=== PATIENT | male | born 1995 | race American Indian/Alaskan Native ===

== ENCOUNTER 2019-01-28 01:34 | Emergency (ER) | payer OTHER ==
[2019-01-28] MEDS ORDERED: NACL 0.9% 1000 ML 1,000 ML IV ONE (01:41)
[2019-01-28 02:35] LABS: Hematocrit 37.8 % (35.5-45.6); Hemoglobin 12.1 gm/dl (11.8-15.2); Mean Corpuscular HGB Conc 32 % (32-34); Mean Corpuscular Volume 78 fl (84-94); Red Blood Count 4.89 M/mm3 (3.65-5.03); Red Cell Distribution Width 14.8 % (13.2-15.2)
[2019-01-28 02:36] LABS: Basophils % (Auto) 0.1 % (0.0-1.8); Lymphocytes % (Auto) 23.4 % (13.4-35.0); Platelet Count 271 K/mm3 (140-440)
[2019-01-28 02:37] LABS: Eosinophils # (Auto) 0.7 K/mm3 (0.0-0.4); Lymphocytes # (Auto) 4.2 K/mm3 (1.2-5.4); Monocytes # (Auto) 1.3 K/mm3 (0.0-0.8)
[2019-01-28 02:47] LABS: Alanine Aminotransferase 19 units/L (7-56); Albumin 4.1 g/dL (3.9-5); BUN/Creatinine Ratio 12; Blood Urea Nitrogen 11 mg/dL (9-20); Hemolysis Index 9
[2019-01-28] MEDS ORDERED: ZOFRAN IV ONE (05:26)
[2019-01-28] MEDS ORDERED: K-DUR PO ONE (05:26)
[2019-01-28] MEDS ORDERED: MORPHINE IV ONE (05:26)
--- NOTE | 2019-01-28 05:27 | Event Note ---
Date: 01/28/19 23-year-old gentleman presents to the emergency room with a complaint of nontraumatic abdominal pain, bilateral lower quadrants, suprapubic and francisco bxiphoid, epigastric. He also endorses nonspecific shortness of breath. Reported no pulmonary embolus or DVT risk factors. Screening laboratory studies, EKG, x-ray of the chest ordered. Pain medication, nausea medication, IV fluids ordered. Vital Signs 01/28/19 01:40 Temperature 98.6 F Pulse Rate 89 Respiratory 20 Rate Blood Pressure 137/69 O2 Sat by Pulse 98 Oximetry Lab Results 01/28/19 01/28/19 Range/Units 01:56 01:56 WBC 18.0 H (4.5-11.0) K/mm3 RBC 4.89 (3.65-5.03) M/mm3 Hgb 12.1 (11.8-15.2) gm/dl Hct 37.8 (35.5-45.6) % MCV 78 L (84-94) fl MCH 25 L (28-32) pg MCHC 32 (32-34) % RDW 14.8 (13.2-15.2) % Plt Count 271 (140-440) K/mm3 Lymph % (Auto) 23.4 (13.4-35.0) % [place] % (Auto) 7.0 (0.0-7.3) % Eos % (Auto) 4.0 (0.0-4.3) % Baso % (Auto) 0.1 (0.0-1.8) % Lymph # 4.2 (1.2-5.4) K/mm3 [place] # 1.3 H (0.0-0.8) K/mm3 Eos # 0.7 H (0.0-0.4) K/mm3 Baso # 0.0 (0.0-0.1) K/mm3 Seg Neutrophils % 65.5 (40.0-70.0) % Seg Neutrophils # 11.8 H (1.8-7.7) K/mm3 Sodium 139 (137-145) mmol/L Potassium 3.3 L (3.6-5.0) mmol/L Chloride 101.0 (98-107) mmol/L Carbon Dioxide 25 (22-30) mmol/L Anion Gap 16 mmol/L BUN 11 (9-20) mg/dL Creatinine 0.9 (0.8-1.5) mg/dL Estimated GFR > 60 ml/min BUN/Creatinine Ratio 12 % Glucose 148 H (75-100) mg/dL Calcium 9.0 (8.4-10.2) mg/dL Total Bilirubin 0.20 (0.1-1.2) mg/dL AST 31 (5-40) units/L ALT 19 (7-56) units/L Alkaline Phosphatase 74 (35-129) units/L Total Protein 7.1 (6.3-8.2) g/dL Albumin 4.1 (3.9-5) g/dL Albumin/Globulin Ratio 1.4 % Lipase 29 (13-60) units/L
--- NOTE | 2019-01-28 05:48 | XRay Report ---
PROCEDURE: XR CHEST 1V AP TECHNIQUE: A portable upright view of the chest was obtained. HISTORY: dyspnea COMPARISONS: None FINDINGS: The heart size and mediastinum appear normal. The lungs are clear. Pleural fluid is not seen. The bon es and soft tissues appear well-maintained. IMPRESSION: No acute cardiopulmonary process.. This document is electronically signed by Armond Ramos MD., January 28 2019 05:46:39 AM ET
[2019-01-28 05:52] LABS: INR 1.08 (0.87-1.13)
--- NOTE | 2019-01-28 07:23 | Emergency Department Report ---
HPI - General Chief Complaint: Abdominal Pain Time Seen by Provider: 01/28/19 07:09 - HPI HPI: Room 26 The patient is a 23-year-old male presenting with a chief complaint of abdominal pain. Patient states his pain began this evening at approximately midnight he developed stabbing midepigastric abdominal pain that migrates across the top of his abdomen. Patient states the pain is intermittent and associated with nausea and vomiting. Patient denies diarrhea or fever but states he broke out into a sweat while vomiting. The patient is to call is occasionally productive for 1 week. Patient was medicated prior to my arrival and now states he is feeling improved Location: [See above] Duration: [See above] Quality: [See above] Severity: [See above] Modifying factors: [see above] Context: [see above] Mode of transportation: [not driving] ED Past Medical Hx - Past Medical History Previous Medical History?: No - Surgical History Past Surgical History?: No - Family History Family history: no significant - Social History Smoking Status: Never Smoker Substance Use Type: None - Medications Home Medications: Home Medications Medication Instructions Recorded Confirmed Last Taken Type Ciprofloxacin HCl [Ciprofloxacin 500 mg PO Q12H #20 tab 01/28/19 Unknown Rx TAB] Famotidine [Pepcid] 20 mg PO BID #20 tablet 01/28/19 Unknown Rx HYDROcodone/APAP 5-325 [[place] 1 each PO Q6HR PRN #10 tablet 01/28/19 Unknown Rx 5/325] ED Review of Systems ROS: Stated complaint: ABD PAIN Other details as noted in HPI Constitutional: diaphoresis Eyes: denies: eye pain ENT: denies: throat pain Respiratory: cough Cardiovascular: denies: chest pain Endocrine: no symptoms reported Gastrointestinal: abdominal pain, nausea, vomiting. denies: diarrhea Genitourinary: denies: dysuria Musculoskeletal: denies: back pain Neurological: denies: headache Physical Exam - Physical Exam Vital Signs: Vital Signs 01/28/19 01/28/19 01/28/19 01:40 05:20 05:31 Temperature 98.6 F Pulse Rate 89 74 Respiratory 20 20 Rate Blood Pressure 137/69 110/68 O2 Sat by Pulse 98 98 99 Oximetry 01/28/19 01/28/19 01/28/19 05:45 06:00 06:15 Temperature Pulse Rate 58 L 88 62 Respiratory 20 16 15 Rate Blood Pressure 110/68 137/71 137/71 O2 Sat by Pulse 98 100 99 Oximetry 01/28/19 06:31 Temperature Pulse Rate 68 Respiratory 13 Rate Blood Pressure 137/71 O2 Sat by Pulse 99 Oximetry Physical Exam: GENERAL: The patient is well-developed well-nourished male sitting on stretcher using cell phone or pain to be in acute distress. [] HEENT: Normocephalic. Atraumatic. Extraocular motions are intact. Patient has moist mucous membranes. NECK: Supple. Trachea midline CHEST/LUNGS: Clear to auscultation. There is no respiratory distress noted. HEART/CARDIOVASCULAR: Regular. There is no tachycardia. There is no gallop rub or murmur. ABDOMEN: Abdomen is soft, with discomfort to palpation in the right upper quadrant, right lower quadrant and left lower quadrant. No rebound or guarding. Patient has normal bowel sounds. There is no abdominal distention. SKIN: There is no rash. There is no edema. There is no diaphoresis. NEURO: The patient is awake, alert, and oriented. The patient is cooperative. The patient has normal speech MUSCULOSKELETAL: There is no evidence of acute injury. ED Course Vital Signs 01/28/19 01/28/19 01/28/19 01:40 05:20 05:31 Temperature 98.6 F Pulse Rate 89 74 Respiratory 20 20 Rate Blood Pressure 137/69 110/68 O2 Sat by Pulse 98 98 99 Oximetry 01/28/19 01/28/19 01/28/19 05:45 06:00 06:15 Temperature Pulse Rate 58 L 88 62 Respiratory 20 16 15 Rate Blood Pressure 110/68 137/71 137/71 O2 Sat by Pulse 98 100 99 Oximetry 01/28/19 06:31 Temperature Pulse Rate 68 Respiratory 13 Rate Blood Pressure 137/71 O2 Sat by Pulse 99 Oximetry ED Medical Decision Making - Lab Data Result diagrams: 01/28/19 01:56 01/28/19 01:56 Laboratory Tests 01/28/19 01/28/19 01/28/19 01:56 01:56 05:29 WBC 18.0 H RBC 4.89 Hgb 12.1 Hct 37.8 MCV 78 L MCH 25 L MCHC 32 RDW 14.8 Plt Count 271 Lymph % (Auto) 23.4 [place] % (Auto) 7.0 Eos % (Auto) 4.0 Baso % (Auto) 0.1 Lymph # 4.2 [place] # 1.3 H Eos # 0.7 H Baso # 0.0 Seg Neutrophils % 65.5 Seg Neutrophils # 11.8 H PT 14.7 INR 1.08 D-Dimer Sodium 139 Potassium 3.3 L Chloride 101.0 Carbon Dioxide 25 Anion Gap 16 BUN 11 Creatinine 0.9 Estimated GFR > 60 BUN/Creatinine Ratio 12 Glucose 148 H Calcium 9.0 Magnesium Total Bilirubin 0.20 AST 31 ALT 19 Alkaline Phosphatase 74 Total Protein 7.1 Albumin 4.1 Albumin/Globulin Ratio 1.4 Lipase 29 Urine Color Urine Turbidity Urine pH Ur Specific [place] Urine Protein Urine Glucose (UA) Urine Ketones Urine Blood Urine Nitrite Urine Bilirubin Urine Urobilinogen Ur Leukocyte Esterase Urine WBC (Auto) Urine RBC (Auto) U Epithel Cells (Auto) Urine Bacteria (Auto) 01/28/19 01/28/19 01/28/19 05:29 05:29 07:30 WBC RBC Hgb Hct MCV MCH MCHC RDW Plt Count Lymph % (Auto) [place] % (Auto) Eos % (Auto) Baso % (Auto) Lymph # [place] # Eos # Baso # Seg Neutrophils % Seg Neutrophils # PT INR D-Dimer 182.7 Sodium Potassium Chloride Carbon Dioxide Anion Gap BUN Creatinine Estimated GFR BUN/Creatinine Ratio Glucose Calcium Magnesium 1.80 Total Bilirubin AST ALT Alkaline Phosphatase Total Protein Albumin Albumin/Globulin Ratio Lipase Urine Color Straw Urine Turbidity Clear Urine pH 7.0 Ur Specific [place] 1.005 Urine Protein <15 mg/dl Urine Glucose (UA) Neg Urine Ketones Tr Urine Blood Neg Urine Nitrite Neg Urine Bilirubin Neg Urine Urobilinogen < 2.0 Ur Leukocyte Esterase Mod Urine WBC (Auto) 12.0 H Urine RBC (Auto) 1.0 U Epithel Cells (Auto) 1.0 Urine Bacteria (Auto) 1+ - EKG Data -: EKG Interpreted by Me EKG shows normal: sinus rhythm Rate: normal - EKG Data When compared to previous EKG there are: previous EKG unavailable Interpretation: other (PAC. No ischemic changes seen) - Radiology Data Radiology results: report reviewed (chest x-ray, CT abdomen and pelvis), image reviewed (chest x-ray, CT abdomen and pelvis) interpreted by me: Chest x-ray-no focal infiltrates, no pneumothorax [facility] [address] [place] [address] XRay Report Signed Patient: JAMES ARCHIBALD MR#: [id number] : 1995 Acct:[id number] Age/Sex: 23 / M ADM Date: 01/28/19 Loc: ED Attending Dr: Ordering Physician: BINH DICKINSON MD Date of Service: 01/28/19 Procedure(s): XR chest 1V ap Accession Number(s): [id number] cc: BINH DICKINSON MD Fluoro Time In Minutes: PROCEDURE: XR CHEST 1V AP TECHNIQUE: A portable upright view of the chest was obtained. HISTORY: dyspnea COMPARISONS: None FINDINGS: The heart size and mediastinum appear normal. The lungs are clear. Pleural fluid is not seen. The bones and soft tissues appear well-maintained. IMPRESSION: No acute cardiopulmonary process.. This document is electronically signed by Shamar Ramos MD., January 28 2019 05:46:39 AM ET Transcribed By: RB Dictated By: SHAMAR RAMOS MD Electronically Authenticated By: SHAMAR RAMOS MD Signed Date/Time: 01/28/1949 DD/ 0541 TD/TT: 01/28/19 0541 [facility] [address] [place] [address] Cat Scan Report Signed Patient: JAMES ARCHIBALD MR#: [id number] : 1995 Acct:[id number] Age/Sex: 23 / M ADM Date: 01/28/19 Loc: ED Attending Dr: Ordering Physician: TAB LAZAR MD Date of Service: 01/28/19 Procedure(s): CT abdomen pelvis w con Accession Number(s): [id number] cc: TAB LAZAR MD CT ABDOMEN PELVIS WITH CONTRAST: HISTORY: Diffuse abdominal pain, leukocytosis. COMPARISON: none. TECHNIQUE: Helical CT in 1.25mm intervals following IV contrast. Sagittal and coronal reconstructions. FINDINGS: Lung bases: Normal. Liver: Normal. Biliary system: Normal. Pancreas: Normal. Spleen: Normal. Kidneys/ureters/bladder: Normal. Adrenal glands: Normal. Aorta: Normal. Intestines: There is no significant oral contrast present which limits evaluation of the GI system. There may be trace oral contrast in the stomach. There is no evidence for obstruction or obvious areas of inflammation. There is normal stool in the colon. Appendix: The appendix is not confidently identified. Pelvic viscera: Normal. Ascites: Trace pelvic ascites is identified of uncertain etiology. No abscess. Adenopathy: None. Musculoskeletal: Normal. IMPRESSION: Trace pelvic ascites of uncertain etiology. Please note the appendix is not confidently identified please correlate with surgical history. Transcribed By: TTR Dictated By: KELLI MEZA JR, MD Electronically Authenticated By: KELLI MEZA JR, MD Signed Date/Time: 01/28/19850 DD/ 7 TD/TT: 01/28/19850 - Differential Diagnosis gastritis, peptic ulcer disease, pancreatitis, PE, appendicitis, Critical care attestation.: If time is entered above; I have spent that time in minutes in the direct care of this critically ill patient, excluding procedure time. ED Disposition Clinical Impression: Acute bronchitis, Leukocytosis, Epigastric abdominal pain, UTI (urinary tract infection) Disposition: TO HOME OR SELFCARE Is pt being admited?: No Does the pt Need Aspirin: No Condition: Stable Instructions: Acute Bronchitis (ED) Additional Instructions: Return to the emergency department immediately should you develop worsening symptoms, fever, inability to tolerate food or liquid or any other concerns. Prescriptions: Ciprofloxacin HCl [Ciprofloxacin TAB] 500 mg PO Q12H #20 tab HYDROcodone/APAP 5-325 [[place] 5/325] 1 each PO Q6HR PRN #10 tablet PRN Reason: Pain Famotidine [Pepcid] 20 mg PO BID #20 tablet Referrals: [facility] MD ESTELA [Primary Care Provider] - 3-5 Days INA LEDBETTER MD [Staff Physician] - 3-5 Days Time of Disposition: 10:51
[2019-01-28 08:19] LABS: Bacteria,Urine 1+ /HPF (Negative); Bilirubin,Urine NEG (Negative); Blood,Urine NEG (Negative); Color,Urine Straw (Yellow); Protein,Urine <15 mg/dL mg/dL (Negative); Urobilinogen,Urine < 2.0 mg/dL (<2.0)
--- NOTE | 2019-01-28 08:56 | Cat Scan Report ---
CT ABDOMEN PELVIS WITH CONTRAST: HISTORY: Diffuse abdominal pain, leukocytosis. COMPARISON: none. TECHNIQUE: Helical CT in 1.25mm intervals following IV contrast. Sagittal and coronal reconstructions. FINDINGS: Lung bases: Normal. Liver: Normal. Biliary system: Normal. Pancreas: Normal. Spleen: Normal. Kidneys/ureters/bladder: Normal. Adrenal glands: Normal. Aorta: Normal. Intestines: There is no significant oral contrast present which limits evaluation of the GI system. There may be trace oral contrast in the stomach. There is no evidence for obstruction or obvious areas of inflammation. There is normal stool in the colon. Appendix: The appendix is not confidently identified. Pelvic viscera: Normal. Ascites: Trace pelvic ascites is identified of uncertain etiology. No abscess. Adenopathy: None. Musculoskeletal: Normal. IMPRESSION: Trace pelvic ascites of uncertain etiology. Please note the appendix is not confidently identified please correlate with surgical history.
[2019-01-28 11:03] VITALS: BP 105/61
== END 2019-01-28 11:01 | disposition home or self-care (01) ==
LOC: ED 01:34
DX: D72.829 Elevated white blood cell count, unspecified (principal); N39.0 Urinary tract infection, site not specified; J20.9 Acute bronchitis, unspecified
CPT/HCPCS: 36415; 71045; 74177; 80053; 81001; 83690; 83735; 85025; 85379; 85610; 93005; 93010; 96361; 96374; 96375; 99285; J2270; J2405; J7030; Q9967